=== PATIENT | female | born 1975 | race Caucasian/White ===

== ENCOUNTER → 2023-02-02 | Day surgery (SDC) | payer OTHER | END | disposition home or self-care (01) | LOC: FMAMMOTONE 10:05 | PROVIDERS: ATTEND Obstetrics & Gynecology | PROC: 0HBT3ZX Excision of Right Breast, Percutaneous Approach, Diagnostic (ICD-10-PCS; principal; 2023-02-02) | DX: D24.1 Benign neoplasm of right breast (principal); N64.89 Other specified disorders of breast; N63.10 Unspecified lump in the right breast, unspecified quadrant | CPT/HCPCS: 19081; 76098-TC-FY; 87899; 88305-TC; A4648 ==

== ENCOUNTER 2024-01-19 02:43 | Emergency (ER) | payer OTHER ==
[2024-01-19 02:52] VITALS: BMI 30.9
[2024-01-19] MEDS ORDERED: METHOCARBAMOL 500 MG TABLET ONE (03:32)
[2024-01-19] MEDS ORDERED: KETOROLAC TROMETHAMINE 30 MG/1 ML VIAL ONE (03:33)
[2024-01-19] MEDS ORDERED: LIDOCAINE 4% PATCH TP ONE (03:33)
[2024-01-19] MEDS: KETOROLAC TROMETHAMINE 30 MG/1 ML VIAL IM ONE (03:43)
[2024-01-19] MEDS: LIDOCAINE 4% PATCH TP ONE (03:43)
[2024-01-19] MEDS: METHOCARBAMOL 750 MG TAB PO ONE (03:44)
[2024-01-19] MEDS: MIDAZOLAM HCL 2 MG/2 ML SINGLE DOSE VIAL IVPUSH ONE ×3 (04:15→05:43)
[2024-01-19] MEDS ORDERED: FENTANYL CITRATE/PF 50 MCG/ML VIAL ONE ×2 (04:20→05:15)
[2024-01-19] MEDS ORDERED: MIDAZOLAM HCL 2 MG/2 ML SINGLE DOSE VIAL ONE ×2 (04:20→05:15)
[2024-01-19] MEDS ORDERED: BUPIVACAINE HCL/PF 0.5% (5MG/ML) 10 ML VIAL ONE (05:29)
[2024-01-19] MEDS ORDERED: DEXAMETHASONE SOD PHOSPHATE 4 MG/1 ML VIAL ONE (05:30)
[2024-01-19] MEDS ORDERED: DEXAMETHASONE SOD PHOSPHATE 10 MG/1 ML VIAL ONE (05:31)
[2024-01-19] MEDS: fentaNYL CITRATE 250 MCG/5 ML VIAL IVPUSH ONE (05:45)
[2024-01-19 06:46] VITALS: BP 138/76; PULSE 78; RESP 28; TEMP 98
[2024-01-19] MEDS ORDERED: LIDOCAINE PATCH REMOVAL MC SCH (22:00)
== END 2024-01-19 07:37 | disposition home or self-care (01) ==
LOC: JER 02:43
PROC: 0RSJXZZ Reposition Right Shoulder Joint, External Approach (ICD-10-PCS; principal; 2024-01-19)
PROC: 3E030GC Introduction of Other Therapeutic Substance into Peripheral Vein, Open Approach (ICD-10-PCS; 2024-01-19)
PROC: 3E030GC Introduction of Other Therapeutic Substance into Peripheral Vein, Open Approach (ICD-10-PCS; 2024-01-19)
PROC: 3E023GC Introduction of Other Therapeutic Substance into Muscle, Percutaneous Approach (ICD-10-PCS; 2024-01-19)
DX: M25.511 Pain in right shoulder (principal); R20.0 Anesthesia of skin; X50.0XXA Overexertion from strenuous movement or load, initial encounter
CPT/HCPCS: 73030-TC-RT-FY; 93005; 93010; 99284-25